=== PATIENT | female | born 1980 | race Caucasian/White ===

== ENCOUNTER 2016-03-13 21:55 | Emergency (ER) | payer OTHER ==
[2016-03-13] MEDS ORDERED: KETOROLAC 30 MG/ML VIAL ONE (22:40)
[2016-03-13] MEDS ORDERED: ONDANSETRON 4 MG VIAL ONE (22:40)
[2016-03-13] MEDS ORDERED: DIPHENHYDRAMINE 50 MG/ML VIAL ONE (23:27)
[2016-03-13] MEDS ORDERED: HALOPERIDOL 5 MG/ML VIAL ONE (23:28)
[2016-03-13] MEDS ORDERED: SODIUM CHLORIDE 0.9% 1,000 ML ONE (23:42)
== END 2016-03-14 01:04 | disposition home or self-care (01) ==
LOC: ER 21:55
CPT/HCPCS: 36415; 71010; 80053; 81001; 82553; 83690; 84484; 84703; 85025; 85610; 87088; 93005; 96361; 96374; 96375

== ENCOUNTER 2016-03-16 20:27 | Emergency (ER) | payer OTHER | END 2016-03-16 22:17 | disposition home or self-care (01) | LOC: ER 20:27 | CPT/HCPCS: 70110 ==

== ENCOUNTER 2016-03-19 02:22 | Emergency (ER) | payer OTHER ==
[2016-03-19] MEDS ORDERED: NEB-ALBUTEROL 2.5 MG/3 ML INH ONE ×2 (03:08→03:19)
== END 2016-03-19 03:57 | disposition home or self-care (01) ==
LOC: ER 02:22
CPT/HCPCS: 71010; 94640

== ENCOUNTER 2016-04-02 19:56 | Emergency (ER) | payer OTHER ==
[2016-04-02] MEDS ORDERED: SODIUM CHLORIDE 0.9% 1,000 ML ONE (20:23)
[2016-04-02] MEDS ORDERED: ONDANSETRON 4 MG VIAL ONE (20:23)
[2016-04-02] MEDS ORDERED: PANTOPRAZOLE 40 MG VIAL IV ONE (20:24)
[2016-04-02] MEDS ORDERED: KETOROLAC 30 MG/ML VIAL ONE (21:05)
== END 2016-04-02 22:36 | disposition home or self-care (01) ==
LOC: ER 19:56
DX: R20.9 Unspecified disturbances of skin sensation (principal); K21.9 Gastro-esophageal reflux disease without esophagitis; S29.011A Strain of muscle and tendon of front wall of thorax, initial encounter; Z79.899 Other long term (current) drug therapy; F17.210 Nicotine dependence, cigarettes, uncomplicated; J45.909 Unspecified asthma, uncomplicated; F41.1 Generalized anxiety disorder; E78.00 Pure hypercholesterolemia, unspecified
CPT/HCPCS: 36415; 80053; 82553; 84484; 85025; 85379; 93005; 96361; 96374; 96375

== ENCOUNTER 2016-04-05 18:07 | Emergency (ER) | payer OTHER | END 2016-04-05 22:04 | disposition home or self-care (01) | LOC: ER 18:07 | DX: M51.36 Other intervertebral disc degeneration, lumbar region (principal); M54.41 Lumbago with sciatica, right side; Z79.899 Other long term (current) drug therapy; F17.210 Nicotine dependence, cigarettes, uncomplicated; F41.1 Generalized anxiety disorder; J45.909 Unspecified asthma, uncomplicated; E78.00 Pure hypercholesterolemia, unspecified ==

== ENCOUNTER 2016-04-06 01:13 | Emergency (ER) | payer OTHER ==
[2016-04-06] MEDS ORDERED: ONDANSETRON 4 MG VIAL ONE (03:24)
[2016-04-06] MEDS ORDERED: SODIUM CHLORIDE 0.9% 1,000 ML ONE (03:24)
[2016-04-06] MEDS ORDERED: LIDOCAINE 2% VISC 15 ML UDC ONE (03:24)
[2016-04-06] MEDS ORDERED: ALU/MAG/SIM 30 ML UDC ONE (03:24)
== END 2016-04-06 04:35 | disposition home or self-care (01) ==
LOC: ER 01:13
DX: R07.2 Precordial pain (principal); R07.89 Other chest pain; K21.0 Gastro-esophageal reflux disease with esophagitis; F17.210 Nicotine dependence, cigarettes, uncomplicated; Z79.899 Other long term (current) drug therapy; F41.1 Generalized anxiety disorder; E78.00 Pure hypercholesterolemia, unspecified; J45.909 Unspecified asthma, uncomplicated
CPT/HCPCS: 36415; 71010; 80053; 82553; 84484; 85025; 93005; 96361; 96374